=== PATIENT | male | born 1960 | race Caucasian/White ===

== ENCOUNTER 2023-09-11 11:02 | Inpatient (IN) | payer SELFPAY ==
[2023-09-11] VITALS (15 sets, daily range): BP systolic 121–205; BP diastolic 69–123; PULSE 72–102; RESP 12–16; TEMP 35.8–36.9; O2SAT 88–100; BMI 25.2; BMI 24.3
--- NOTE | 2023-09-11 11:17 | EDS_ITS ---
HPI <JAVI Alvarez - Last Filed: 09/11/23 13:30> History of Present Illness Chief Complaint: Laceration Narrative Narrative: Patient presenting today with a laceration to his left volar wrist that he got this morning from a carpentry knife. He reports that he was trying to pull up a staple but accidentally cut his wrist. Tetanus is up-to-date in the last 2 years. He is not on any blood thinners, he denies any other injury. Tetanus Immunization: <5 years [facility] <JAVI Alvarez - Last Filed: 09/11/23 13:30> [facility] Home Medications NK 09/11/23 [History Last Taken Unknown] Allergy/AdvReac Type Severity Reaction Status Date / Time No Known Allergies Allergy Verified 09/11/23 11:03 Social History Smoking Status: Current every day smoker tobacco type: cigarettes ROS <JAVI Alvarez - Last Filed: 09/11/23 13:30> ROS ED Constitutional Constitutional ED: Denies chills or fever(s) Cardiovascular Cardiovascular: Denies chest pain Respiratory/Chest Respiratory/Chest: Denies cough or dyspnea Gastrointestinal Gastrointestinal: Denies abdominal pain, nausea or vomiting Musculoskeletal Musculoskeletal: Denies arthralgias or myalgias Integumentary Reports laceration Neurologic Neurologic: Denies paresthesias or weakness EXAM <JAVI Alvarez - Last Filed: 09/11/23 13:30> Physical Exam Const Vital Signs: 09/11/23 11:03 09/11/23 12:16 09/11/23 12:31 Temperature 98.5 F Temperature Source Temporal Pulse Rate 102 H 93 89 Respiratory Rate 16 16 12 Respiratory Pattern Blood Pressure 181/93 H 202/105 H 205/102 H Blood Pressure Mean 122 137 136 Blood Pressure Source Blood Pressure Position Blood Pressure Location Pulse Ox 95 95 94 Oxygen Delivery Method Room Air Room Air Room Air 09/11/23 12:55 09/11/23 13:16 09/11/23 13:18 Temperature 98.0 F Temperature Source Pulse Rate 86 86 Respiratory Rate 15 16 Respiratory Pattern Normal Blood Pressure 204/109 H 191/123 H Blood Pressure Mean 140 145 Blood Pressure Source Monitor Blood Pressure Position Semi-Fowlers Blood Pressure Location Right Arm Pulse Ox 95 97 Oxygen Delivery Method Room Air Positive well nourished, well developed and no apparent distress General Appearance ED: well developed HEENT Reports normocephalic and head/scalp atraumatic Mouth ED: Yes moist mucous membranes normal Eyes PERRL and EOMs intact bilaterally Neck full ROM and supple Chest Wall inspection of chest normal Resp normal respiratory effort and clear to auscultation bilaterally Cardio regular rate and regular rhythm GI soft to palpation, non-tender, non-distended and no masses Back/Spine normal ROM and normal to inspection Extremity normal to inspection and full ROM Extremity Narrative: 6 cm full-thickness linear laceration to the L wrist. Active bleeding. Left radial pulse 2+, good capillary refill, sensation intact. MSPs intact. Neuro oriented x3, CN's II-XII intact bilaterally, moves all extremities, no focal motor deficits and no sensory deficits noted Sensorium / Orientation: awake and alert Psych mental status grossly normal and thought process normal <Dr. Best Low DO - Last Filed: 09/11/23 14:29> Physical Exam Const Vital Signs: 09/11/23 11:03 09/11/23 12:16 09/11/23 12:31 Temperature 98.5 F Temperature Source Temporal Pulse Rate 102 H 93 89 Respiratory Rate 16 16 12 Respiratory Pattern Blood Pressure 181/93 H 202/105 H 205/102 H Blood Pressure Mean 122 137 136 Blood Pressure Source Blood Pressure Position Blood Pressure Location Pulse Ox 95 95 94 Oxygen Delivery Method Room Air Room Air Room Air 09/11/23 12:55 09/11/23 13:16 09/11/23 13:18 Temperature 98.0 F Temperature Source Pulse Rate 86 86 Respiratory Rate 15 16 Respiratory Pattern Normal Blood Pressure 204/109 H 191/123 H Blood Pressure Mean 140 145 Blood Pressure Source Monitor Blood Pressure Position Semi-Fowlers Blood Pressure Location Right Arm Pulse Ox 95 97 Oxygen Delivery Method Room Air [facility] <JAVI Alvarez - Last Filed: 09/11/23 13:30> [facility] Narrative Medical decision making narrative: Patient presenting today due to a laceration along the ventral aspect of his left wrist. Tetanus is up-to-date. We were able to apply a tourniquet and patient does appear to have blood pulsating from the radial artery, vascular surgeon Dr. Delgadillo has been consulted. Labs will be obtained to assess H&H, type and screen, coags, and metabolic panel will also be obtained. X-ray of the left wrist obtained and shows laceration and degenerative changes. He will be given pain control. I did speak with the vascular surgery PA, they will be taking patient to the OR. Patient is elevating his left arm and staff is applying pressure to the area. Patient was taken to the OR in stable condition and is comfortable with plan. Lab Data Attestation: I reviewed the patient's lab results. Labs: Laboratory Results - last 24 hr 09/11/23 12:15 WBC 11.0 RBC 4.76 Hgb 14.0 Hct 43.2 MCV 90.8 MCH 29.4 MCHC 32.4 RDW Std Deviation 46.6 H RDW Coeff of Manuela 14.0 Plt Count 231 MPV 11.6 Immature Gran % (Auto) 0.400 Neut % (Auto) 68.9 Lymph % (Auto) 17.8 L [place] % (Auto) 9.2 Eos % (Auto) 3.0 Baso % (Auto) 0.7 Absolute Neuts (auto) 7.6 Absolute Lymphs (auto) 1.96 Nucleated RBC % 0 PT 13.2 INR 1.0 Sodium 140 Potassium 4.3 Chloride 110 H Carbon Dioxide 29.0 Anion Gap 1 L BUN 33 H Creatinine 1.32 H Estim Creat Clear Calc 57.28 Est GFR (MDRD) Af Amer 70 Est GFR (MDRD) Non-Af 58 L BUN/Creatinine Ratio 25.0 H Glucose 115 H Calcium 9.3 Blood Type B POSITIVE Antibody Screen NEGATIVE Radiography X-Ray: Read by ED Physician and Read by Radiologist Diagnostic Testing: Clinical Impression(s) from Imaging Studies Wrist X-Ray 09/11/23 11:20 IMPRESSION: Soft tissue laceration along the ventral aspect of the wrist joint. Degenerative changes of the first metacarpal phalangeal joint. 6 mm cyst in the subchondral region of the distal radius Electronically Signed: Bang Bray MD at 12:01 EST , <Dr. Best Low, DO - Last Filed: 09/11/23 14:29> MDM Lab Data Labs: Laboratory Results - last 24 hr 09/11/23 12:15 WBC 11.0 RBC 4.76 Hgb 14.0 Hct 43.2 MCV 90.8 MCH 29.4 MCHC 32.4 RDW Std Deviation 46.6 H RDW Coeff of Manuela 14.0 Plt Count 231 MPV 11.6 Immature Gran % (Auto) 0.400 Neut % (Auto) 68.9 Lymph % (Auto) 17.8 L [place] % (Auto) 9.2 Eos % (Auto) 3.0 Baso % (Auto) 0.7 Absolute Neuts (auto) 7.6 Absolute Lymphs (auto) 1.96 Nucleated RBC % 0 PT 13.2 INR 1.0 Sodium 140 Potassium 4.3 Chloride 110 H Carbon Dioxide 29.0 Anion Gap 1 L BUN 33 H Creatinine 1.32 H Estim Creat Clear Calc 57.28 Est GFR (MDRD) Af Amer 70 Est GFR (MDRD) Non-Af 58 L BUN/Creatinine Ratio 25.0 H Glucose 115 H Calcium 9.3 Blood Type B POSITIVE Antibody Screen NEGATIVE Radiography Diagnostic Testing: Clinical Impression(s) from Imaging Studies Wrist X-Ray 09/11/23 11:20 IMPRESSION: Soft tissue laceration along the ventral aspect of the wrist joint. Degenerative changes of the first metacarpal phalangeal joint. 6 mm cyst in the subchondral region of the distal radius Electronically Signed: Bang Bray MD at 12:01 EST Reading Location ID and State: [address] [place] [address] , Service support , Treatment and Re-Evaluation Narrative: I have personally performed a face to face assessment of the patient and have reviewed the BLANCO Note. I performed a substantive portion of the visit including all aspects of the following. My valdovinos findings include: History: Patient presents with laceration to his left wrist that occurred today. Patient is right-hand dominant. Patient was using a utility knife when it slipped and accidentally cut his left wrist. Patient states the bleeding was brisk initially. Patient denies any paresthesias or weakness. Exam: Vital signs are stable except for an elevated blood pressure of 181/93. Patient is afebrile. Patient is in no acute distress. Examination of the left wrist revealed a 6 cm full-thickness linear laceration on the volar aspect of the left wrist. There is moderate bleeding noted. There is some pulsatile bleeding noted coming from the area of the radial artery. Blood pressure cuff was applied to the left upper arm. This was inflated. The wound was explored in a bloodless field. There are no tendon lacerations noted. The blood pressure cuff was lowered to 140 which is less than his systolic pressure. At that point, there was some pulsatile bleeding noted. Strength is 5/5 in the radial, median, and ulnar areas. Sensation was intact to light touch in the radial, median, and ulnar areas. Medical Decision Making: Differential diagnosis includes radial artery laceration, anemia, and foreign body. X-rays of the left wrist will be obtained to assess for foreign body and fracture. CBC will be obtained to assess for leukocytosis and anemia. Basic metabolic profile will be obtained to assess for electrolyte abnormality and renal function. PT with INR will be obtained to assess for coagulopathy. Type and screen will be obtained. X-rays of the left wrist were obtained. There are 3 views. On my independent interpretation, there is no acute fracture noted. There is no foreign body noted. Radiologist also interpreted the x-ray and agrees. CBC was reviewed and was within normal limits. PT with INR was reviewed and was within normal limits. Basic metabolic profile was reviewed. BUN was 33 and creatinine was 1.32. Blood type was B+. Case was discussed with Dr. Delgadillo from vascular surgery. He will take patient to the operating room. Pressure dressing was maintained. Patient was transferred to the operating room in stable condition. Discharge Plan Dx/Rx/DC Orders Clinical Impression: Laceration of radial artery, Laceration of wrist, left, complicated Disposition Disposition: Acute Care [facility]
--- NOTE | 2023-09-11 11:20 | RAD_ITS ---
STUDY: X-RAY - LEFT WRIST REASON FOR EXAM: Male, 63 years old. Soft tissue laceration TECHNIQUE: 3 view(s) of the wrist were obtained. COMPARISON: None. FINDINGS: There is a 6 mm subchondral cyst in the distal radius. Normal radiocarpal articulation. Normal distal radioulnar articulation. Normal carpal bones. Normal carpal articulations. Normal carpometacarpal articulation of the thumb. Normal second through fifth carpometacarpal articulations. Normal visualized metacarpal bones. Degenerative changes of the first metacarpal phalangeal joint. There is evidence of soft tissue laceration along the volar aspect of the wrist. No radiopaque foreign body is seen. RAD/Wrist min 3 Views IMPRESSION: Soft tissue laceration along the ventral aspect of the wrist joint. Degenerative changes of the first metacarpal phalangeal joint. 6 mm cyst in the subchondral region of the distal radius Electronically Signed: Bang Bray MD at 12:01 EST ,
[2023-09-11] MEDS: Morphine 4 MG/ML Syringe IV (12:11)
[2023-09-11] MEDS: Ondansetron 4 MG/2 ML Vial IV (12:11)
[2023-09-11 12:34] LABS: Absolute Lymphocyte Count 1.96 X10^3/uL (0.83-4.51); Absolute Neutrophil Count 7.6 X10^3/uL (2.0-7.7); Basophil# 0.08 X10^3/uL; Basophil% 0.7 % (0-1); Eosinophil# 0.33 X10^3/uL; Hematocrit 43.2 % (40-54); Lymphocyte # 1.96 X10^3/ul (0.83-4.51); Lymphocyte % 17.8 % (19-41); Mean Corp Hgb Conc 32.4 g/dL (32-36); Mean Corpuscular Hgb 29.4 pg (27.0-32.0); Mean Corpuscular Volume 90.8 fL (80-94); Mean Platelet Vol. 11.6 fl (6.2-12.0); Monocyte# 1.01 X10^3/uL; Monocyte% 9.2 % (0-10); NRBC Flagged by Analyzer 0 % (0-5); Neutrophil % 68.9 % (47-70); Platelet Count 231 K/mm3 (150-450); RBC Distribution Width SD 46.6 fl (35.1-43.9); Red Blood Count 4.76 M/mm3 (4.6-6.2)
[2023-09-11 12:41] LABS: Prothrombin Time (Protime)PT. 13.2 SECONDS (11.7-14.9)
[2023-09-11 12:48] LABS: Anion Gap 1 (5-15); BUN 33 mg/dL (7-18); Calcium,Total 9.3 mg/dL (8.5-10.1); Chloride 110 mmol/L (98-107); Creatinine, Serum 1.32 mg/dL (0.70-1.30); EST Glomerular Filtration Rate 58 mL/min (>60); Est Glom Filt Rate - Afr Amer 70 mL/min (>60); Estimated Creatinine Clearance 57.28 ml/min; Glucose 115 mg/dL (74-106); Potassium 4.3 mmol/L (3.5-5.1); Sodium Level 140 mmol/L (136-145)
--- NOTE | 2023-09-11 12:53 | NURSING ---
Belongings, including keys and wallet, given to pt's boss who is present- Yumiko [employer].
[2023-09-11] MEDS: 0.9% Normal Saline (1000mL) 1,000 ML 15 ML IV (13:27)
[2023-09-11] MEDS: Heparin Injection (Vial) 5,000 UNIT/ML VIAL 5000 UNIT (13:58)
[2023-09-11] MEDS: Lactated Ringers 1,000 ML 15 ML IV (14:04)
[2023-09-11] MEDS: Bupivacaine 0.25% 30 ML Vial (14:44)
--- NOTE | 2023-09-11 14:44 | OP.PCM_ITS ---
Report of Operation Date of Procedure: 09/11/23 Pre-Operative Diagnosis: left wrist laceration Post-Operative Diagnosis: same, transected superficial branch radial nerve, partial transection Palmaris longus tendon, intact radial artery Surgery/Procedure Performed:: exploration without repair extremity artery repair palmaris longus tendon Surgeon: Best Delgadillo Type of Anesthesia: General Estimated Blood Loss (mL): 2 Description of Procedure: HPI: Patient is a 63-year-old male who presents to the emergency department with laceration of the left wrist due to injury at work. Apparently he was holding a sharp knife and attempting to pull on something when his hand slipped and inadvertently the blade sliced his wrist. There was reported significant hemorrhage and he was brought to the emergency department by nonmedical personnel. In the ER there was reported pulsatile substantial bleeding. He has normal motor function in his hand and the hand appears pink and well-perfused. He is taken now emergently for exploration with possible vessel repair or ligation. Description of procedure: Upon obtaining form consent and verification correct patient procedure site patient taken to the operating where he was placed on general anesthesia. He was then positioned prepped and draped in usual sterile fashion a time was performed. Upon removal of the dressings no bleeding was encountered. There was some ooze from some of the trivial subcutaneous tissue which was controlled Bovie. Self-retaining retractors then put in the wound and the radial artery assessed with Doppler proximal to the wound and was normal triphasic in character. We then traced this distally into the wound. Sharp dissection was then used to dissect down to the radial artery at the proximal aspect of the wound and then this was dissected free circumferentially. A right angle was then used to place a vessel loop and further dissection carried distally along the vessel. Once it had been exposed and mobilized throughout the entirety of the wound bed it was clear that there was no injury to it. There was however a total transection of the superficial radial nerve branch which had some minor oozing. There also was bleeding from radial vein which was controlled with small clips. There also was found to be partial transection of the palmaris longus tendon which had some moderate amount of bruising. The wound was copiously irrigated with saline and the tissue agitated to ensure that there was no injured vessel that had spasmed with occult potential for bleeding. Once we had fully evaluated the tissue for any potential bleeding hazards of the radial nerve was tagged with 6-0 Prolene sutures. The palmaris longus tendon was then repaired with 5-0 PDS in running fashion. The wound was again irrigated then closed with 3-0 Vicryl for the subcutaneous layer followed by interrupted 2-0 nylon loose closure. Patient was then awake from anesthesia taken to the recovery room with anticipated admission to the [facility] unit.
--- NOTE | 2023-09-11 17:00 | PCM.HP.STD ---
HPI - General General Date of Admission: 09/11/23 Chief Complaint: L wrist laceration HPI Narrative ANDRZEJ PURI, is a 63 M who presented to the ER today with laceration of the L wrist after accidental injury with carpentry knife at work. He was using the knife to pull up a staple, the knife slipped, and he inadvertently cut his wrist. He was brought to the ER in a private vehicle by nonmedical friends/coworkers. In the ER, he was reported to have pulsatile and significant bleeding from the wound. There was concern for radial artery injury. A tourniquet was applied and his arm was elevated to control the bleeding. He was hemodynamically stable in the ER. We were consulted for surgical intervention. He had intact motor function and the hand appeared well-perfused. He was taken to the OR for emergent wound exploration. Ultimately, no radial artery injury was found during surgery. He was found to have injury to radial vein which was the source of the bleeding. He was also found to have transection of what appeared to be the superficial radial nerve. He had partial transection of the palmaris longus tendon which was repaired. The skin was closed loosely due to the nature of the wound. He was placed in a wrist splint. He is postoperatively admitted for continued monitoring. He otherwise denies significant past medical history, he does not take any prescription medications. He does not currently follow with a primary care provider. He lives in [place] but works here in [place]. [facility] Home Medications NK 09/11/23 [History Last Taken Unknown] Allergy/AdvReac Type Severity Reaction Status Date / Time No Known Allergies Allergy Verified 09/11/23 11:03 Social History Smoking Status: Current every day smoker tobacco type: cigars Vital Signs Vital Signs Vital Signs: 09/11/23 11:03 09/11/23 12:16 09/11/23 12:31 Temperature 98.5 F Temperature Source Temporal Pulse Rate 102 H 93 89 Respiratory Rate 16 16 12 Respiratory Pattern Blood Pressure 181/93 H 202/105 H 205/102 H Blood Pressure Mean 122 137 136 Blood Pressure Source Blood Pressure Position Blood Pressure Location Baseline BP Pulse Ox 95 95 94 Oxygen Delivery Method Room Air Room Air Room Air Oxygen Flow Rate (L/min) 09/11/23 12:55 09/11/23 13:16 09/11/23 13:18 Temperature 98.0 F Temperature Source Pulse Rate 86 86 Respiratory Rate 15 16 Respiratory Pattern Normal Blood Pressure 204/109 H 191/123 H Blood Pressure Mean 140 145 Blood Pressure Source Monitor Blood Pressure Position Semi-Fowlers Blood Pressure Location Right Arm Baseline BP Pulse Ox 95 97 Oxygen Delivery Method Room Air Oxygen Flow Rate (L/min) 09/11/23 15:01 09/11/23 15:05 09/11/23 15:10 Temperature 97.3 F L Temperature Source Temporal Pulse Rate 75 77 76 Respiratory Rate 16 16 16 Respiratory Pattern Normal Blood Pressure 173/85 H 155/69 H 154/79 H Blood Pressure Mean 114 97 104 Blood Pressure Source Monitor Monitor Monitor Blood Pressure Position Semi-Fowlers Semi-Fowlers Semi-Fowlers Blood Pressure Location Right Arm Right Arm Right Arm Baseline BP 204/109 204/109 204/109 Pulse Ox 93 88 97 Oxygen Delivery Method Room Air Room Air Nasal Cannula Oxygen Flow Rate (L/min) 2 09/11/23 15:15 09/11/23 15:30 09/11/23 15:45 Temperature 96.5 F L Temperature Source Temporal Pulse Rate 78 84 89 Respiratory Rate 16 16 16 Respiratory Pattern Blood Pressure 155/77 H 165/91 H 174/99 H Blood Pressure Mean 103 115 124 Blood Pressure Source Monitor Monitor Monitor Blood Pressure Position Semi-Fowlers Semi-Fowlers Semi-Fowlers Blood Pressure Location Right Arm Right Arm Right Arm Baseline BP 204/109 204/109 204/109 Pulse Ox 98 97 100 Oxygen Delivery Method Nasal Cannula Room Air Room Air Oxygen Flow Rate (L/min) 2 Weight Weight: 170 lb 13.732 oz Body Mass Index (BMI) 25.2 Physical Exam Const alert, oriented x3 and no apparent distress General Appearance: cooperative and comfortable HEENT normocephalic, head/scalp atraumatic, hearing grossly normal bilaterally, external ears normal and external nose normal Eyes EOMs intact bilaterally General Eye: normal appearance of both eyes Neck full ROM General: normal visual inspection and trachea midline Resp normal respiratory effort, normal air movement, no retractions, no use of accessory muscles and clear to auscultation bilaterally Effort and Inspection: able to speak in complete sentences; Negative for labored, stridor or audible wheezes Cardio regular rate and regular rhythm Extremity Extremity Narrative: L wrist laceration now s/p operative repair with wound dressings and splint in place. L hand is warm and pink Neuro oriented x3, CN's II-XII intact bilaterally, moves all extremities, no focal motor deficits and no sensory deficits noted Neuro Narrative: L hand with motor and sensory function intact Speech: speech normal Psych mental status grossly normal Appearance: grossly normal Attitude: calm and engaged Activity / Motor Behavior: appropriate eye contact Speech: normal speech Mood & Affect: euthymic mood Judgement: judgement good Results Lab / Micro Data 09/11/23 12:15 09/11/23 12:15 Labs: Laboratory Results - last 24 hr 09/11/23 12:15: WBC 11.0, RBC 4.76, Hgb 14.0, Hct 43.2, MCV 90.8, MCH 29.4, MCHC 32.4, RDW Std Deviation 46.6 H, RDW Coeff of Manuela 14.0, Plt Count 231, MPV 11.6, Immature Gran % (Auto) 0.400, Neut % (Auto) 68.9, Lymph % (Auto) 17.8 L, [place] % (Auto) 9.2, Eos % (Auto) 3.0, Baso % (Auto) 0.7, Absolute Neuts (auto) 7.6, Absolute Lymphs (auto) 1.96, Nucleated RBC % 0, PT 13.2, INR 1.0, Sodium 140, Potassium 4.3, Chloride 110 H, Carbon Dioxide 29.0, Anion Gap 1 L, BUN 33 H, Creatinine 1.32 H, Estim Creat Clear Calc 57.28, Est GFR (MDRD) Af Amer 70, Est GFR (MDRD) Non-Af 58 L, BUN/Creatinine Ratio 25.0 H, Glucose 115 H, Calcium 9.3, Blood Type B POSITIVE, Antibody Screen NEGATIVE Imaging Radiology Impression Wrist X-Ray 09/11/23 11:20 IMPRESSION: Soft tissue laceration along the ventral aspect of the wrist joint. Degenerative changes of the first metacarpal phalangeal joint. 6 mm cyst in the subchondral region of the distal radius Electronically Signed: Bang Bray MD at 12:01 EST , Assessment & Plan Assessment/Plan (1) Laceration of wrist, left, complicated: PLAN: Patient is overall doing well postoperatively. He reports overall mild pain to the left wrist, currently well-controlled. His motor and sensory function appear to be intact. The hand is well-perfused. Will continue to monitor for bleeding at the incision site. Current postoperative dressing and splint will remain in place as long as they remain C/D/I. I will plan to take down these dressings tomorrow morning. Will plan for 2 more doses of Ancef while inpatient. He is noted to be hypertensive. Will order hydralazine 10 mg IV as needed. Will continue to monitor
[2023-09-11] MEDS: 0.45% Normal Saline 1,000 ML 100 ML IV (17:49)
[2023-09-11] MEDS: hydrALAZINE 20 MG/ML Vial 10 MG IV (18:15)
[2023-09-11] MEDS: 0.9% Saline Lock 10 ML Syringe IV (18:15)
[2023-09-11] MEDS: Cefazolin 1 GM/50 ML BAG IV (18:56)
[2023-09-11] MEDS: Acetaminophen 500 MG Tablet 1000 MG PO (20:59)
[2023-09-12] MEDS: 0.45% Normal Saline 1,000 ML 100 ML IV (03:45)
[2023-09-12 03:49] VITALS: BP 148/79; PULSE 76; RESP 16; TEMP 36.6; O2SAT 94
[2023-09-12 05:32] LABS: Absolute Lymphocyte Count 2.03 X10^3/uL (0.83-4.51); Absolute Neutrophil Count 8.1 X10^3/uL (2.0-7.7); Basophil# 0.09 X10^3/uL; Basophil% 0.8 % (0-1); Eosinophil# 0.39 X10^3/uL; Eosinophils% 3.3 % (0-5); Hematocrit 43.2 % (40-54); Hemoglobin 13.9 g/dL (13.0-16.5); Lymphocyte # 2.03 X10^3/ul (0.83-4.51); Lymphocyte % 17.2 % (19-41); Mean Corp Hgb Conc 32.2 g/dL (32-36); Mean Corpuscular Hgb 29.5 pg (27.0-32.0); Mean Corpuscular Volume 91.7 fL (80-94); Mean Platelet Vol. 11.8 fl (6.2-12.0); Monocyte# 1.12 X10^3/uL; Monocyte% 9.5 % (0-10); NRBC Flagged by Analyzer 0 % (0-5); Neutrophil # 8.12 X10^3/uL (2.7-7.7); Neutrophil % 68.9 % (47-70); Platelet Count 229 K/mm3 (150-450); RBC Distribution Width CV 14.3 % (11.6-14.6); RBC Distribution Width SD 48.5 fl (35.1-43.9); Red Blood Count 4.71 M/mm3 (4.6-6.2); White Blood Count 11.8 K/mm3 (4.4-11.0)
[2023-09-12] MEDS: Acetaminophen 500 MG Tablet 1000 MG PO (06:14)
[2023-09-12] MEDS: Cefazolin 1 GM/50 ML BAG IV (06:15)
[2023-09-12] MEDS: Enoxaparin 40 MG/0.4 ML Syringe SC (08:12)
[2023-09-12 08:18] VITALS: O2SAT 94
[2023-09-12 08:41] VITALS: BP 161/98; PULSE 79; RESP 16; TEMP 36.7; O2SAT 96
--- NOTE | 2023-09-12 09:33 | CASEMGMT ---
Discharge Planning A list of?primary care providers including quality and resource use data and consistent with the patient's preferred geographic region, medical needs, and insurance network was created from the patients insurance website.? This list was provided to the RN CM. Mita Simmons, Discharge Planning Asst.
--- NOTE | 2023-09-12 09:38 | PCM.PN.SRG ---
Subjective Subjective Patient is seen resting comfortably in bed today. He reports his pain at the L wrist is well-controlled. He did not require any dressing changes overnight, no bleed through. He did require PRN hydralazine once after which his BP stayed within normal range overnight. It was elevated again this morning, but nursing notes the patient had just been up around the room before it was checked. He denies any SOB, CP, palpitations, ERAZO, N/V, F/C. Objective Data Objective Data Vital Signs: Vital Signs Temp Pulse Resp BP Pulse Ox O2 Del Method O2 Flow Rate 98.1 F 79 16 161/98 H 96 Room Air 2 09/12/23 08:41 09/12/23 08:41 09/12/23 08:41 09/12/23 08:41 09/12/23 08:41 09/12/23 08:41 09/11/23 15:15 Oxygen Flow Rate (L/min) 2 Oxygen Delivery Method Room Air Weight: 164 lb 0.383 oz Body Mass Index (BMI) 24.3 Intake & Output: Intake and Output for Last 24 Hours 09/10/23 09/11/23 09/12/23 23:59 23:59 23:59 Intake Total 1130.75 / 1130.75 1043.33 / 1043.33 Balance 1130.75 / 1130.75 1043.33 / 1043.33 Lab / Micro Data 09/12/23 05:05 09/11/23 12:15 Labs: Laboratory Results - last 24 hr 09/11/23 12:15: WBC 11.0, RBC 4.76, Hgb 14.0, Hct 43.2, MCV 90.8, MCH 29.4, MCHC 32.4, RDW Std Deviation 46.6 H, RDW Coeff of Manuela 14.0, Plt Count 231, MPV 11.6, Immature Gran % (Auto) 0.400, Neut % (Auto) 68.9, Lymph % (Auto) 17.8 L, [place] % (Auto) 9.2, Eos % (Auto) 3.0, Baso % (Auto) 0.7, Absolute Neuts (auto) 7.6, Absolute Lymphs (auto) 1.96, Nucleated RBC % 0, PT 13.2, INR 1.0, Sodium 140, Potassium 4.3, Chloride 110 H, Carbon Dioxide 29.0, Anion Gap 1 L, BUN 33 H, Creatinine 1.32 H, Estim Creat Clear Calc 57.28, Est GFR (MDRD) Af Amer 70, Est GFR (MDRD) Non-Af 58 L, BUN/Creatinine Ratio 25.0 H, Glucose 115 H, Calcium 9.3, Blood Type B POSITIVE, Antibody Screen NEGATIVE 09/12/23 05:05: WBC 11.8 H, RBC 4.71, Hgb 13.9, Hct 43.2, MCV 91.7, MCH 29.5, MCHC 32.2, RDW Std Deviation 48.5 H, RDW Coeff of Manuela 14.3, Plt Count 229, MPV 11.8, Immature Gran % (Auto) 0.300, Neut % (Auto) 68.9, Lymph % (Auto) 17.2 L, [place] % (Auto) 9.5, Eos % (Auto) 3.3, Baso % (Auto) 0.8, Absolute Neuts (auto) 8.1 H, Absolute Lymphs (auto) 2.03, Nucleated RBC % 0 Radiography Diagnostic Testing: Radiology Impression Wrist X-Ray 09/11/23 11:20 IMPRESSION: Soft tissue laceration along the ventral aspect of the wrist joint. Degenerative changes of the first metacarpal phalangeal joint. 6 mm cyst in the subchondral region of the distal radius Electronically Signed: Bang Bray MD at 12:01 EST Reading Location ID and State: [address] [place] [address] , Service support , Physical Exam Const alert, oriented x3 and no apparent distress General Appearance: cooperative and comfortable HEENT normocephalic, head/scalp atraumatic, hearing grossly normal bilaterally, external ears normal and external nose normal Eyes EOMs intact bilaterally General Eye: normal appearance of both eyes Neck full ROM General: normal visual inspection and trachea midline Resp normal respiratory effort, normal air movement, no retractions, no use of accessory muscles and clear to auscultation bilaterally Effort and Inspection: able to speak in complete sentences; Negative for labored, stridor or audible wheezes Cardio regular rate and regular rhythm Extremity Extremity Narrative: L wrist laceration now s/p operative repair. Surgical dressing was removed, very minimal bleeding noted. Sutures are intact, skin edges well-approximated and viable. No surrounding erythema, focal swelling, fluctuance. No drainage noted. L hand is warm and pink, L radial pulse is palpable. Neuro oriented x3, CN's II-XII intact bilaterally, moves all extremities, no focal motor deficits and no sensory deficits noted Neuro Narrative: L hand with motor and sensory function intact Speech: speech normal Psych mental status grossly normal Appearance: grossly normal Attitude: calm and engaged Activity / Motor Behavior: appropriate eye contact Speech: normal speech Mood & Affect: euthymic mood Judgement: judgement good Assessment & Plan Assessment/Plan (1) Laceration of wrist, left, complicated: PLAN: Patient is overall doing well postoperatively. He reports mild pain to the left wrist, currently well-controlled. His motor and sensory function appear to be intact. The L radial pulse is palpable. The incision site is satisfactory in appearance without evidence of infection. He was initially hypertensive after surgery. He received one PRN dose of hydralazine yesterday evening and the BPs remained improved overnight. BP is a bit elevated again this morning. Discussed with patient who is not inclined to start any medication for this. He is instructed to monitor his BP at home over the next few days. He is encouraged to re-establish with his PCP, particularly if his pressures remain high. Plan is for discharge today. Dr. Delgadillo did discuss his case with hand surgeon Dr. Salgado at [facility] who is agreeable to seeing the patient in follow-up next week to further assess given the palmaris tendon injury and to coordinate PT if needed. Patient is informed that Dr. Salgdao' office will be contacting him to schedule. He was instructed regarding the care for the incision site. He should continue to cover with dry dressing/kerlix wrap. This should be changed daily or more often as needed to keep the area clean and dry. He should wear the splint at all times until he sees the hand surgeon next week, removing only to change the dressing. He should not allow the incision site to get wet, he should cover it when showering such as with a cast bag.
--- NOTE | 2023-09-12 09:46 | CASEMGMT ---
Addendum entered by Erica Dorsey 09/12/23 10:15: Pt discharging home with self care with follow up planned post discharge to discuss next steps. RN bedside to provide dressing education and discharge instructions. Erica MCARTHUR, RN, CCM Original Note: SONI DE JESUS Assessment: Face to Face with pt for initial transition planning/care coordination assessment. SONI DE JESUS introduced self and role at [facility], pt voices understanding and consents to assessment. Pt is A&O x4 and answers all questions appropriately at this time. Pt resting in bed comfortably. Care providers, pharmacy, and demographics verified/updated. Admitting Dx: Left wrist laceration PCP: None- provided a pt with a PCP list for [facility] Specialists: None Preferred Pharmacy: [facility] Pharmacy Insurance: [place] Prescription Benefit: yes LNOK: Brother Thiago Living Arrangements: Pt lives home with girlfriend. Independent at baseline. Transportation: Pt drives self and denies concerns with transportation. DME: None HHC/SNF: None Pt states no concerns with going home at time of dc. Pt states no further concerns/needs. CM to follow. Advised pt to ask CM if any further question/concerns/needs arise, voices understanding. Discussed with the patient where his injury occurred. Pt reports his injury did happen at work. Inquired on if pt completed a FROI. Pt reports he did not but his boss is aware of the injury. Discussed with pt the process for a workers comp claim, pt reports he does not want to file it under workers comp but wants to go through his health insurance. Pt Goal: Home Plan: Home Erica MCARTHUR, RN, CCM
--- NOTE | 2023-09-12 09:53 | PCM.DC.SUM ---
Providers Date of Admission: 09/11/23 Primary Care Physician: No Primary Care Phys Reason For Visit: LEFT WRIST LACERATION Diagnosis Discharge Diagnosis (1) Laceration of wrist, left, complicated: Status: Acute Code(s): S61.512A - Laceration without foreign body of left wrist, initial encounter Plan: Patient is overall doing well postoperatively. He reports mild pain to the left wrist, currently well-controlled. His motor and sensory function appear to be intact. The L radial pulse is palpable. The incision site is satisfactory in appearance without evidence of infection. He was initially hypertensive after surgery. He received one PRN dose of hydralazine yesterday evening and the BPs remained improved overnight. BP is a bit elevated again this morning. Discussed with patient who is not inclined to start any medication for this. He is instructed to monitor his BP at home over the next few days. He is encouraged to re-establish with his PCP, particularly if his pressures remain high. Plan is for discharge today. Dr. Delgadillo did discuss his case with hand surgeon Dr. Salgado at [facility] who is agreeable to seeing the patient in follow-up next week to further assess given the palmaris tendon injury and to coordinate PT if needed. Patient is informed that Dr. Salgado' office will be contacting him to schedule. He was instructed regarding the care for the incision site. He should continue to cover with dry dressing/kerlix wrap. This should be changed daily or more often as needed to keep the area clean and dry. He should wear the splint at all times until he sees the hand surgeon next week, removing only to change the dressing. He should not allow the incision site to get wet, he should cover it when showering such as with a cast bag. Medications at Discharge Home Medications oxycodone 5 mg tablet 5 mg PO Q8H PRN PRN Pain Score 4-10 4 days #12 tabs 09/12/23 Hospital Course Summary of Care Provided Hospital Course: ANDRZEJ PURI, is a 63 M who presented to the ER today with laceration of the L wrist after accidental injury with carpentry knife at work. He was using the knife to pull up a staple, the knife slipped, and he inadvertently cut his wrist. He was brought to the ER in a private vehicle by nonmedical friends/coworkers. In the ER, he was reported to have pulsatile and significant bleeding from the wound. There was concern for radial artery injury. A tourniquet was applied and his arm was elevated to control the bleeding. He was hemodynamically stable in the ER. We were consulted for surgical intervention. He had intact motor function and the hand appeared well-perfused. He was taken to the OR for emergent wound exploration. Ultimately, no radial artery injury was found during surgery. He was found to have injury to radial vein which was the source of the bleeding. He was also found to have transection of what appeared to be the superficial radial nerve. He had partial transection of the palmaris longus tendon which was repaired. The skin was closed loosely due to the nature of the wound. He was placed in a wrist splint. He was postoperatively admitted for continued monitoring. This morning, the wound was satisfactory in appearance without any bleeding or signs of infection. The patient was doing well with his pain well controlled. We have referred him to see a hand surgeon at [facility] in follow-up due to the palmaris tendon injury, the patient was informed to expect a call to schedule f/u and to contact our office if he does not hear from them by Friday. He is instructed to ensure the splint remains in place except for dressing changes until he sees the hand surgeon for his evaluation. He was instructed as to how to change his dressings and to monitor for signs/symptoms of infection and contact the office if these arise. He will follow-up in our office as an outpatient in 2 weeks. He is also encouraged to continue to monitor his BP at home, it had much improved overnight and is now elevated this morning but patient feels this is secondary to being here at the hospital. He is also strongly advise to re-establish with his PCP. Physical Exam Const alert, oriented x3 and no apparent distress General Appearance: cooperative and comfortable HEENT normocephalic, head/scalp atraumatic, hearing grossly normal bilaterally, external ears normal and external nose normal Eyes EOMs intact bilaterally General Eye: normal appearance of both eyes Neck full ROM General: normal visual inspection and trachea midline Resp normal respiratory effort, normal air movement, no retractions, no use of accessory muscles and clear to auscultation bilaterally Effort and Inspection: able to speak in complete sentences; Negative for labored, stridor or audible wheezes Cardio regular rate and regular rhythm Extremity Extremity Narrative: L wrist laceration now s/p operative repair. Surgical dressing was removed, very minimal bleeding noted. Sutures are intact, skin edges well-approximated and viable. No surrounding erythema, focal swelling, fluctuance. No drainage noted. L hand is warm and pink, L radial pulse is palpable. Neuro oriented x3, CN's II-XII intact bilaterally, moves all extremities, no focal motor deficits and no sensory deficits noted Neuro Narrative: L hand with motor and sensory function intact Speech: speech normal Psych mental status grossly normal Appearance: grossly normal Attitude: calm and engaged Activity / Motor Behavior: appropriate eye contact Speech: normal speech Mood & Affect: euthymic mood Judgement: judgement good Weight / BMI Weight Weight: 164 lb 0.383 oz Body Mass Index (BMI) 24.3 ABG / Lab / Microbiology Data 09/12/23 05:05 09/11/23 12:15 Laboratory: Laboratory Results - last 24 hr 09/11/23 12:15: WBC 11.0, RBC 4.76, Hgb 14.0, Hct 43.2, MCV 90.8, MCH 29.4, MCHC 32.4, RDW Std Deviation 46.6 H, RDW Coeff of Manuela 14.0, Plt Count 231, MPV 11.6, Immature Gran % (Auto) 0.400, Neut % (Auto) 68.9, Lymph % (Auto) 17.8 L, [place] % (Auto) 9.2, Eos % (Auto) 3.0, Baso % (Auto) 0.7, Absolute Neuts (auto) 7.6, Absolute Lymphs (auto) 1.96, Nucleated RBC % 0, PT 13.2, INR 1.0, Sodium 140, Potassium 4.3, Chloride 110 H, Carbon Dioxide 29.0, Anion Gap 1 L, BUN 33 H, Creatinine 1.32 H, Estim Creat Clear Calc 57.28, Est GFR (MDRD) Af Amer 70, Est GFR (MDRD) Non-Af 58 L, BUN/Creatinine Ratio 25.0 H, Glucose 115 H, Calcium 9.3, Blood Type B POSITIVE, Antibody Screen NEGATIVE 09/12/23 05:05: WBC 11.8 H, RBC 4.71, Hgb 13.9, Hct 43.2, MCV 91.7, MCH 29.5, MCHC 32.2, RDW Std Deviation 48.5 H, RDW Coeff of Manuela 14.3, Plt Count 229, MPV 11.8, Immature Gran % (Auto) 0.300, Neut % (Auto) 68.9, Lymph % (Auto) 17.2 L, [place] % (Auto) 9.5, Eos % (Auto) 3.3, Baso % (Auto) 0.8, Absolute Neuts (auto) 8.1 H, Absolute Lymphs (auto) 2.03, Nucleated RBC % 0 Radiography Diagnostic Testing: Radiology Impression Wrist X-Ray 09/11/23 11:20 IMPRESSION: Soft tissue laceration along the ventral aspect of the wrist joint. Degenerative changes of the first metacarpal phalangeal joint. 6 mm cyst in the subchondral region of the distal radius Electronically Signed: Bang Bray MD at 12:01 EST , D/C Instructions Call your doctor if your incision/area has: Sudden Increased Bleeding and Foul Smelling Discharge Call your doctor if you observe: Fever of 101 or Higher, Coldness, Increased Pain and Uncontrolled pain Additional Instructions: Do not lift with your left arm/hand until you are seen by the hand surgeon. Do not get the incision site wet. For showers, make sure you cover with a cast bag or similar to keep the site clean and dry. Continue with dry gauze dressing changed once daily or more often as needed to keep the site clean and dry. Monitor for signs of infection such as increasing pain, redness, swelling, drainage, or foul odor, nausea, vomiting, fevers, or chills. If these develop, proceed to the ER. Wear the splint at all times, remove only to change the dressings. Wear the splint as instructed until you are seen by the hand surgeon. I have prescribed oxycodone 5 mg to be taken by mouth up to three times daily as needed for pain. You may take this in combination with Tylenol or Ibuprofen as allowed. Do not take with any other prescription pain medications. Take only as prescribed. Our office will contact you to schedule a follow-up appointment in 2 weeks. Please contact our office at [phone] with any questions or concerns. You will also be receiving a call from Dr. Salgado' office at [facility] to schedule an appointment next week. Dr. Nunez is the hand surgeon that we have referred you to. Meaningful Use Info Meaningful Use Diagnoses (Choose all that apply): None applicable Discharge Plan Admission Admit Date/Time: 09/11/23 14:46 Primary Reason for Your Visit: L wrist laceration Attending Provider: Best Delgadillo Primary Care Provider: Care Physician,Pamella Primary Discharge Orders/Prescriptions Prescriptions: New oxycodone 5 mg Tablet 5 mg PO Q8H PRN PRN (Reason: Pain Score 4-10) 4 Days Qty: 12 0RF Referrals / Follow Up: Care Physician,No Primary [Primary Care Provider] - Disposition Disposition (needs filled in before D/C Order can be placed): Home, Self Care
--- NOTE | 2023-09-12 10:37 | PHA.DC_ITS ---
Pharmacy [facility] has performed discharge medication reconciliation and counseling for this patient. The patient's discharge medication list was reviewed for discrepancies and discrepancies were resolved. The patient was counseled on the following discharge medications and changes in medications for homegoing were reviewed. The Reason for Use, instructions for use, and potential side effects were reviewed for all new medications. The patient's questions regarding all of their medications were answered. 1. Oxycodone 5 mg PO Q8H PRN pain. The patient was able to verbally demonstrate an understanding of their discharge medications. The patient was counselled on new medication by vice president pharmacy Teddy. Medications at Discharge Home Medications oxycodone 5 mg tablet 5 mg PO Q8H PRN PRN Pain Score 4-10 4 days #12 tabs 09/12/23
== END 2023-09-12 11:10 | disposition home or self-care (01) | DRG 501 ==
LOC: ED 13:02 → SDC 13:05 → AC 13:06 → SDC 15:04 → MS3 15:04
PROVIDERS: Physician Assistant; Admitting Provider Surgery Trauma Surgery; Emergency Provider Emergency Medicine; Visit Provider Surgery Trauma Surgery
PROC: 0LQ60ZZ Repair Left Lower Arm and Wrist Tendon, Open Approach (ICD-10-PCS; principal; 2023-09-11 13:15)
DX: S56.222A Laceration of other flexor muscle, fascia and tendon at forearm level, left arm, initial encounter (principal); S65.8 Injury of other blood vessels at wrist and hand level; F17.210 Nicotine dependence, cigarettes, uncomplicated; I10 Essential (primary) hypertension; S61.512A Laceration without foreign body of left wrist, initial encounter; S64.22XA Injury of radial nerve at wrist and hand level of left arm, initial encounter; F17.290 Nicotine dependence, other tobacco product, uncomplicated; M19.032 Primary osteoarthritis, left wrist; W26.0XXA Contact with knife, initial encounter
CPT/HCPCS: 36415; 73110; 80048; 85025; 85610; 86850; 86900; 86901; 94668; 99252; 99284; A4648; J7120; A4216; G0463; J0330; J2405